=== PATIENT | female | born 1955 | race Caucasian/White ===

== ENCOUNTER 2021-06-28 18:15 | Inpatient (IN) | payer MEDICARE, MEDICAID, SELFPAY ==
--- NOTE | ~2021-06-28 | XR_ITS ---
EXAMINATION: RIGHT HAND/WRIST. CLINICAL INFORMATION: Punched wall. COMPARISON: None TECHNIQUE: 4 views right hand and wrist. FINDINGS: There is no visible acute fracture, dislocation or subluxation seen. There is mild reduction in the IV joint space second through fifth digits with periarticular spurring. Visualized inter carpal and the carpometacarpal joints are normal. There is no visible acute fracture, dislocation or subluxation seen. The soft tissues are normal. There is no scaphoid fracture visualized. XR/XR hand wrist RT IMPRESSION: No acute fracture or dislocation. Mild degenerative disc changes DIP joints second through fifth digit.
[2021-06-28 18:47] VITALS: BMI 32.1
[2021-06-28 18:50] VITALS: BP 157/78; PULSE 97; RESP 16; TEMP 36.3; O2SAT 96
[2021-06-28] MEDS: Gabapentin 600 MG TABLET PO (22:00)
[2021-06-28] MEDS: rOPINIRole HCL 2 MG TABLET 4 MG PO (22:34)
[2021-06-29] MEDS: traZODone HCL 50 MG TABLET PO ×2 (00:12→19:59)
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
[2021-06-29 06:00] VITALS: BP 136/75; PULSE 88; RESP 16; TEMP 35.5; O2SAT 98
[2021-06-29] MEDS: Gabapentin 600 MG TABLET PO ×3 (08:19→19:59)
[2021-06-29] MEDS: Acetaminophen 325 MG TABLET 650 MG PO ×2 (08:26→16:06)
[2021-06-29] MEDS: Omeprazole 20 MG CAPSULE.DR PO (11:17)
[2021-06-29] MEDS: Gabapentin 300 MG CAPSULE PO (11:17)
[2021-06-29] MEDS: diazePAM 5 MG TABLET PO ×2 (11:17→19:58)
[2021-06-29] MEDS: rOPINIRole HCL 1 MG TABLET PO ×2 (11:17→11:22)
--- NOTE | 2021-06-29 14:38 | PC.NURSE ---
pt states she smokes 5 cigarettes a day. does not want nicotine replacement.
[2021-06-29 16:31] VITALS: BP 124/59; PULSE 101; TEMP 36.6
[2021-06-29] MEDS: rOPINIRole HCL 2 MG TABLET 4 MG PO ×2 (17:00→19:59)
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
[2021-06-29] MEDS: FLUoxetine HCl 10 MG CAPSULE 30 MG PO (17:26)
[2021-06-29 17:34] LABS: MANUAL DIFF FLAG NO
[2021-06-29 17:37] LABS: Basophils Percent Auto 0.4 % (0-2); Hematocrit 40.6 % (37-47); Hemoglobin 13.4 g/dl (12.0-16.0); Imm Gran Abs Auto 0.03 X10*3/uL (0.00-0.03); Imm Gran Pct Auto 0.4 % (0.0-0.4); Lymphocytes Absolute Auto 3.2 X10*3/uL (1.2-4.9); Mean Corpuscular Hemoglobin 28.6 pg (27.0-33.0); Mean Corpuscular Volume 86.6 fL (80-98); Mean Platelet Volume 9.7 fL (9.4-12.3); Monocytes Absolute Auto 0.7 X10*3/uL (0.1-1.2); Monocytes Percent Auto 9.3 % (2-11); Neutrophils Absolute Auto 3.8 X10*3/uL (2.0-8.3); Neutrophils Percent Auto 48.9 % (45-73); Platelet Count 269 X10*3/uL (160-400); Red Blood Count 4.69 X10*6/uL (4.20-5.50); Red Cell Distribution Width 14.1 % (11.0-16.0); White Blood Count 7.7 X10*3/uL (4.8-10.8)
[2021-06-29 17:50] LABS: Anion Gap 12 (12-20); Blood Urea Nitrogen 27 mg/dL (9-16); Carbon Dioxide 33 mmol/L (22-29); Chloride 99 mmol/L (96-108); Creatinine Clr Calc Pharmacy 63.9; Estimated Glomerular Filt Rate 59; Potassium 4.4 mmol/L (3.3-5.1); Sodium 140 mmol/L (135-145)
[2021-06-29] MEDS: Melatonin 3 MG TABLET 9 MG PO (19:58)
--- NOTE | 2021-06-29 23:36 | PM.EVENT ---
Event Note Date of Service: 06/29/21 Event Note: attempted to see pt but pt was sleeping
[2021-06-30] MEDS: Omeprazole 20 MG CAPSULE.DR PO (05:39)
[2021-06-30] MEDS: diazePAM 5 MG TABLET PO ×2 (08:25→20:13)
[2021-06-30] MEDS: rOPINIRole HCL 1 MG TABLET PO (08:25)
[2021-06-30] MEDS: Gabapentin 600 MG TABLET PO ×3 (08:25→20:13)
[2021-06-30] MEDS: Acetaminophen 325 MG TABLET 650 MG PO (11:25)
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
[2021-06-30 18:00] VITALS: BP 110/68; PULSE 88; RESP 18; TEMP 36.7; O2SAT 100
[2021-06-30] MEDS: FLUoxetine HCl 10 MG CAPSULE 30 MG PO (20:13)
[2021-06-30] MEDS: Melatonin 3 MG TABLET 9 MG PO (20:13)
[2021-06-30] MEDS: rOPINIRole HCL 2 MG TABLET 4 MG PO (20:13)
[2021-06-30] MEDS: traZODone HCL 50 MG TABLET PO (20:13)
[2021-07-01] MEDS: Omeprazole 20 MG CAPSULE.DR PO (04:46)
[2021-07-01] MEDS: Acetaminophen 325 MG TABLET 650 MG PO ×2 (04:46→10:40)
[2021-07-01 06:00] VITALS: BP 124/70; PULSE 89; RESP 16; TEMP 36.5; O2SAT 93
[2021-07-01] MEDS: rOPINIRole HCL 1 MG TABLET PO (08:59)
[2021-07-01] MEDS: diazePAM 5 MG TABLET PO ×2 (08:59→20:44)
[2021-07-01] MEDS: Gabapentin 600 MG TABLET PO ×3 (08:59→20:42)
[2021-07-01] MEDS: Loperamide HCl 2 MG CAPSULE 4 MG PO (12:36)
[2021-07-01] MEDS: hydrOXYzine HCL 25 MG TABLET PO (17:19)
[2021-07-01 18:00] VITALS: BP 134/82; PULSE 85; RESP 16; TEMP 36.6
[2021-07-01] MEDS: FLUoxetine HCl 10 MG CAPSULE 30 MG PO (20:42)
[2021-07-01] MEDS: Melatonin 3 MG TABLET 9 MG PO (20:43)
[2021-07-01] MEDS: traZODone HCL 50 MG TABLET PO (20:44)
[2021-07-01] MEDS: rOPINIRole HCL 2 MG TABLET 4 MG PO (20:44)
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
[2021-07-02 06:00] VITALS: BP 130/82; PULSE 93; TEMP 36.9; O2SAT 93
[2021-07-02] MEDS: Omeprazole 20 MG CAPSULE.DR PO (06:32)
[2021-07-02] MEDS: Ibuprofen 400 MG TABLET PO ×2 (06:32→23:58)
[2021-07-02] MEDS: Gabapentin 600 MG TABLET PO ×3 (09:00→20:51)
[2021-07-02] MEDS: diazePAM 5 MG TABLET PO ×2 (09:00→20:52)
[2021-07-02] MEDS: rOPINIRole HCL 1 MG TABLET PO (09:00)
[2021-07-02] MEDS: Acetaminophen 325 MG TABLET 650 MG PO ×2 (09:00→20:53)
[2021-07-02] MEDS: Albuterol Sulfate 90 MCG 8 GM INHALER 2 PUFF INHALE (14:30)
[2021-07-02] MEDS: hydrOXYzine HCL 25 MG TABLET PO (14:31)
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
--- NOTE | 2021-07-02 16:28 | PC.NURSE ---
Pt had signed a 3-Day Notice on 06/29 up on Saturday.
[2021-07-02 18:00] VITALS: BP 172/81; PULSE 93; RESP 18; TEMP 36.3; O2SAT 97
[2021-07-02] MEDS: Melatonin 3 MG TABLET 9 MG PO (20:51)
[2021-07-02] MEDS: FLUoxetine HCl 10 MG CAPSULE 30 MG PO (20:51)
[2021-07-02] MEDS: traZODone HCL 50 MG TABLET PO (20:52)
[2021-07-02] MEDS: rOPINIRole HCL 2 MG TABLET 4 MG PO (20:52)
[2021-07-03 06:00] VITALS: BP 98/56; PULSE 80; RESP 16; TEMP 35.9; O2SAT 93
[2021-07-03] MEDS: Omeprazole 20 MG CAPSULE.DR PO (06:23)
[2021-07-03] MEDS: Ibuprofen 400 MG TABLET PO (06:36)
[2021-07-03] MEDS: diazePAM 5 MG TABLET PO (08:33)
[2021-07-03] MEDS: rOPINIRole HCL 1 MG TABLET PO (08:33)
[2021-07-03] MEDS: Gabapentin 600 MG TABLET PO (08:34)
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
[2021-07-03] MEDS: LORazepam 0.5 MG TABLET PO (09:45)
== END 2021-07-03 11:30 | disposition home or self-care (01) | DRG 885 ==
PROVIDERS: Admitting Provider Psychiatry & Neurology Psychiatry; PCP Internal Medicine; Visit Provider Psychiatry & Neurology Psychiatry
DX: F33.1 Major depressive disorder, recurrent, moderate (principal); R45.851 Suicidal ideations; F43.25 Adjustment disorder with mixed disturbance of emotions and conduct; F43.10 Post-traumatic stress disorder, unspecified; Z91.5 Personal history of self-harm; Z88.2 Allergy status to sulfonamides; Z88.5 Allergy status to narcotic agent; Z79.899 Other long term (current) drug therapy
CPT/HCPCS: 36415; 73110; 73130; 80051; 82565; 84520; 85025

== ENCOUNTER 2024-09-06 13:55 | Emergency (ER) | payer MEDICARE, MEDICAID, SELFPAY ==
--- NOTE | ~2024-09-06 | CT_ITS ---
EXAMINATION: CT ANGIOGRAM CHEST CLINICAL INFORMATION: Left pleuritic chest pain. Elevated d-dimer. COMPARISON: None available. TECHNIQUE: Multiple axial images were obtained through the chest after the administration of 65 mL of Omnipaque 350 intravenous contrast. Extensive vascular post-processing including two-dimensional and three-dimensional reformatted images were created and reviewed on an independent workstation. This CT examination was performed using dose optimization techniques as appropriate, variously including the following: *Automated exposure control *Adjustment of mA and/or kV according to patient size (this includes techniques or standardized protocols for targeted exams where dose is matched to indication/reason for exam; i.e. extremities or head) *Use of iterative reconstruction technique DLP: 297 mGy-cm FINDINGS: QUALITY OF STUDY/CONTRAST BOLUS: Satisfactory. PULMONARY ARTERIES: No pulmonary embolus identified. THORACIC AORTA: No aneurysm. LUNG: Severe, diffuse, coarse, bilateral interstitial prominence with a peripheral predominance. Associated honeycombing and/or traction bronchiectasis. Left lower lobe chain sutures. No consolidation or particularly suspicious nodule identified. Mild, diffuse bronchial wall thickening. Patent central bronchi. PLEURA: No pleural effusion or pneumothorax appreciated. MEDIASTINUM: Normal heart size. No pericardial effusion. 1.7 cm subcarinal lymph node (image 25, series 5). 1.2 cm pretracheal node (image 19). 1.6 cm right hilar node (image 23). No evidence of septal bowing or right heart strain. CORONARY ARTERY CALCIFICATION: Moderate. CHEST WALL/AXILLA: No axillary or internal mammary lymphadenopathy by size criteria. OSSEOUS STRUCTURES: No acute or suspicious osseous finding. Degenerative changes of the lower thoracic spine. Partially imaged lower cervical anterior fixation plate and screws, without evidence of hardware fracture. Mild osteoarthritis of the glenohumeral joints. Old, healed fracture of the left clavicle. UPPER ABDOMEN: Unremarkable. No reflux of contrast into the hepatic veins to suggest elevated right heart pressures. CT/CT angio chest PE protocol IMPRESSION: No evidence of pulmonary embolism. No acute finding. Severe, diffuse, coarse, bilateral interstitial prominence with a peripheral predominance. Associated honeycombing and/or traction bronchiectasis. Mild, diffuse bronchial wall thickening. Mild mediastinal and right hilar adenopathy. VTE: negative Electronically signed by: Rory Lopez MD 09/06/2024 05:10 PM EST
[2024-09-06 14:07] VITALS: BP 142/88; PULSE 66; O2SAT 98
[2024-09-06 14:18] VITALS: BP 135/76; PULSE 80; RESP 18; TEMP 36.4; O2SAT 96; BMI 30.9
[2024-09-06 14:55] LABS: MANUAL DIFF FLAG NO
[2024-09-06 14:56] LABS: Basophils Percent Auto 0.6 % (0-2); Eosinophils Percent Auto 0.2 % (0-4); Hematocrit 33.2 % (37.0-47.0); Hemoglobin 10.9 g/dl (12.0-16.0); Imm Gran Abs Auto 0.01 X10*3/uL (0.00-0.03); Imm Gran Pct Auto 0.2 % (0.0-0.4); Lymphocytes Absolute Auto 2.6 X10*3/uL (1.2-4.9); Lymphocytes Percent Auto 50.5 % (20-40); Mean Corpuscular HGB Conc 32.8 g/dl (31.0-35.0); Mean Corpuscular Hemoglobin 27.9 pg (27.0-33.0); Mean Corpuscular Volume 85.1 fL (80.0-98.0); Mean Platelet Volume 9.7 fL (9.4-12.3); Monocytes Absolute Auto 0.6 X10*3/uL (0.1-1.2); Monocytes Percent Auto 11.7 % (2-11); Neutrophils Absolute Auto 1.9 x10*3/uL (2.0-8.3); Neutrophils Percent Auto 36.8 % (45-73); Platelet Count 206 X10*3/uL (160-400); Red Cell Distribution Width 13.2 % (11.0-16.0); White Blood Count 5.2 X10*3/uL (4.8-10.8)
--- NOTE | 2024-09-06 14:56 | ED.BACK ---
HPI - Back Pain/Injury General Chief Complaint: Dyspnea Stated Complaint: BACK PAIN FROM [facility] PER EMS Time Seen by Provider: 09/06/24 14:20 Source: patient, EMS and old records reviewed Mode of arrival: ambulatory Limitations: no limitations History of Present Illness ED Provider: ROMINA OBANDO Narrative: 68 yo female with remote history of lung cancer s/p surgery, PTSD, COPD, GERD who has been at [facility] for about a week she notes 2 days of WILIAN pain that is pleuritic and she cannot take a deep breath. She denies thinners or prior blood clots. She denies cough or fevers. She has no sputum. She states tylenol is not working. Pain is posterior upper back upper lung pain MD elicited complaint: other (pleuritic upper back pain) Pertinent past history: other Onset (ago): day(s) (2) Timing: constant Severity: severe Similar Symptoms Previously: No Quality: sharp Radiation: none Exacerbating factors: deep breaths Relieving factors: none Context: other Associated symptoms: other (dyspnea) Work related injury: No Related Data Previous Rx's ?Medication ?Instructions ?Recorded albuterol sulfate 90 mcg/actuation 2 puff inhalation Q4H PRN sob #0 07/03/21 aerosol inhaler (Ventolin HFA) grams diazepam 5 mg tablet 5 mg PO BID #0 tabs 07/03/21 fluoxetine 10 mg capsule 30 mg (3 x 10 mg) PO BEDTIME 30 07/03/21 days #0 caps gabapentin 600 mg tablet 600 mg PO TID #0 tabs 07/03/21 melatonin 3 mg tablet 9 mg (3 x 3 mg) PO BEDTIME #0 tabs 07/03/21 omeprazole 20 mg capsule,delayed 20 mg PO DAILY@0630 #0 caps 07/03/21 release ropinirole 1 mg tablet 1 mg PO DAILY #0 tabs 07/03/21 ropinirole 2 mg tablet 4 mg (2 x 2 mg) PO BEDTIME #0 tabs 07/03/21 trazodone 50 mg tablet 50 mg PO BEDTIME 30 days #30 tabs 07/03/21 Allergies Allergy/AdvReac Type Severity Reaction Status Date / Time codeine Allergy Unknown Verified 06/28/21 18:48 guaifenesin [From Robitussin] Allergy Unknown Unverified 09/06/24 14:22 meperidine [From Demerol] Allergy Unknown Verified 06/28/21 18:48 prednisone Allergy Unknown Unverified 09/06/24 14:22 propofol Allergy Unknown Unverified 09/06/24 14:22 Sulfa (Sulfonamide Allergy Unknown Verified 06/28/21 18:48 Antibiotics) varenicline [From Chantix] Allergy Unknown Verified 06/28/21 18:48 Review of Systems Review of Systems: Constitutional : No Weight loss, No Fever, No Chills, ENT/Mouth : No Hearing loss, No Ear Pain, No Nasal Congestion, No Sinus Pain, No Hoarseness, No sore throat, No Rhinorrhea, No Swallowing Difficulty Cardiovascular : No Chest Pain, No SOB Respiratory : No Cough, pos Dyspnea Gastrointestinal : No Nausea, No Vomiting, No Diarrhea, No abdominal Pain, No Hematochezia, No Melena Genitourinary : No Dysuria, No Urinary Frequency, No Hematuria, No Urinary Incontinence, Musculoskeletal : positive back pain Skin : No Skin Lesions, No rash Neuro : No Weakness, No Numbness, No Paresthesias, no loss of bowel or bladder incontinence, no saddle anesthesia all other systems reviewed and are negative [facility] Past Medical History Attestation statement: The following information was validated with the patient. Source: old records reviewed Medical History MDD (major depressive disorder), recurrent episode, moderate Post traumatic stress disorder (PTSD) Social History Social History Household Members: Spouse Housing: House Unable to assess alcohol history related to: Refusing to respond Patient Tobacco Use Status: Refuse Tobacco use screen Smoked in Last 30 Days: No Use of substances other than those prescribed or required for medical reasons: No Advance Directives: No Advance Directives Information Provided: Yes Do you have a plan to hurt others: No Plan service: No Sexual orientation: Straight/Heterosexual Physical Exam Vital Signs: Vital Signs: Last Vital Signs Temp 97.5 F 09/06/24 14:18 Pulse 80 09/06/24 14:18 Resp 18 09/06/24 14:18 BP 135/76 09/06/24 14:18 Pulse Ox 96 09/06/24 14:18 O2 Del Method Room Air 09/06/24 14:18 BMI result Body Mass Index 30.9 Appearance: Alert. Oriented X3. No acute distress. Eyes: Pupils equal, round and reactive to light. ENT: Pharynx normal. Neck: Normal inspection. Neck supple. CVS: Normal heart rate and rhythm. Pulses normal. Respiratory: No respiratory distress. Breath sounds splinting L side lung sounds noted. Abdomen: Soft and nontender. Skin: Skin warm and dry. Normal skin color. Normal skin turgor. Extremities: No lower extremity edema. No calf ttp Neuro: Oriented X 3. No motor deficit. No sensory deficit. Course Course Course Narrative: age adjusted ddimer 330 - CTA PE ordered Medications Administered Discontinued Medications Generic Name Dose Route Start Last Admin Trade Name Freq PRN Reason Stop Dose Admin Tramadol HCl 50 mg 09/06/24 14:39 09/06/24 15:05 Tramadol Hcl 50 Mg Tablet PO 09/06/24 14:40 50 mg ONCE ONE Administration Medical Decision Making Medical Decision Making [facility] Narrative: 68 yo female with remote history of lung cancer s/p surgery, PTSD, COPD, GERD now with pleuritic L upper posterior back pain at this time needs CXR for PTX/mass/infection and ddimer given the pain. If positive CTA ordered. PO tramadol ordered for pain, pain x 2 days one troponin ordered. Doubt ACS, no rash noted Differential Diagnosis Differential Diagnoses: The differential diagnosis associated with the presentation includes mass/PTX/infection/VTE Admission/Observation Consideration of admission/observation: Escalation of care including admission/observation considered Lab Data [facility] Lab Attestation statement: I reviewed the patient's lab results. 09/06/24 14:50 09/06/24 14:50 Labs: Lab Results 09/06/24 Range/Units 14:50 WBC 5.2 (4.8-10.8) X10*3/uL RBC 3.90 L (4.20-5.50) X10*6/uL Hgb 10.9 L (12.0-16.0) g/dl Hct 33.2 L (37.0-47.0) % MCV 85.1 (80.0-98.0) fL MCH 27.9 (27.0-33.0) pg MCHC 32.8 (31.0-35.0) g/dl RDW 13.2 (11.0-16.0) % Plt Count 206 (160-400) X10*3/uL MPV 9.7 (9.4-12.3) fL Immature Gran % (Auto) 0.2 (0.0-0.4) % Neut % (Auto) 36.8 L (45-73) % Lymph % (Auto) 50.5 H (20-40) % [place] % (Auto) 11.7 H (2-11) % Eos % (Auto) 0.2 (0-4) % Baso % (Auto) 0.6 (0-2) % Lymph # (Auto) 2.6 (1.2-4.9) X10*3/uL [place] # (Auto) 0.6 (0.1-1.2) X10*3/uL Eos # (Auto) 0.0 (0.0-0.4) X10*3/uL Baso # (Auto) 0.0 (0.0-0.2) X10*3/uL Abs Immat Gran (auto) 0.01 (0.00-0.03) X10*3/uL Absolute Neuts (auto) 1.9 L (2.0-8.3) x10*3/uL Absolute Nucleated RBC 0.000 (0.0-0.012) X10*3/uL Nucleated RBC % (auto) 0.0 (0.0-0.2) /100WBC D-Dimer High Sensitivty 411 NG/ML Sodium 143 (135-145) mmol/L Potassium 3.6 (3.3-5.1) mmol/L Chloride 109 H (96-108) mmol/L Carbon Dioxide 27 (22-29) mmol/L Anion Gap 11 L (12-20) BUN 15 (9-16) mg/dL Creatinine 0.81 (0.5-1.4) mg/dL Estim Creat Clear Calc 70.6 Estimated GFR > 60 Random Glucose 96 (60-115) mg/dL Calcium 8.8 (8.4-10.2) mg/dL Magnesium 1.2 L* (1.6-2.6) mg/dL Total Bilirubin 0.2 (0.0-1.0) mg/dL Direct Bilirubin < 0.2 (0.0-0.5) mg/dL AST 16 (5-31) U/L ALT 16 (0-31) U/L Alkaline Phosphatase 80 (39-117) U/L Troponin I High Sens < 2.7 (<3.5-17.0) ng/L Total Protein 6.8 (6.5-8.0) g/dL Albumin 4.0 (3.5-5.0) g/dL Independent Interpretation I performed an independent interpretation of an: EKG, Plain X-Ray and CT Scan Interpretation: Rate: 93 Rhythm:NSR [place]: normal Normal P waves. Normal JESSICA. Normal QRS complex. ST T wave : inverted t waves V1 and V2, no RUTHY qTC: 482 prior studies: no sig ischemia The study has been interpreted contemporaneously by me. . Radiology Impression Discussion of test interpretation with radiology: I have reviewed the radiologist's reading. External Record Review External record reviewed: Outpatient record Discharge Plan Discharge Clinical Impression: Hypomagnesemia, Pleuritic pain Patient Disposition: Still a Patient Prescriptions: No Action gabapentin 600 mg Tablet 600 mg PO TID Qty: 0 0RF fluoxetine 10 mg Capsule 30 mg PO BEDTIME 30 Days Qty: 0 0RF albuterol sulfate [Ventolin HFA] 90 mcg/actuation Hfa Aerosol Inhaler 2 puff inhalation Q4H PRN (Reason: sob) Qty: 0 0RF diazepam 5 mg Tablet 5 mg PO BID Qty: 0 0RF ropinirole 1 mg Tablet 1 mg PO DAILY Qty: 0 0RF ropinirole 2 mg Tablet 4 mg PO BEDTIME Qty: 0 0RF melatonin 3 mg Tablet 9 mg PO BEDTIME Qty: 0 0RF omeprazole 20 mg Capsule,Delayed Release(Dr/Ec) 20 mg PO DAILY@0630 Qty: 0 0RF trazodone 50 mg Tablet 50 mg PO BEDTIME 30 Days Qty: 30 0RF Print Language: Greenlandic
[2024-09-06 15:04] LABS: D Dimer High Sensitivity 411 NG/ML
[2024-09-06] MEDS: traMADoL HCL 50 MG TABLET PO (15:05)
[2024-09-06 15:18] LABS: Alanine Aminotransferase 16 U/L (0-31); Alkaline Phosphatase 80 U/L (39-117); Anion Gap 11 (12-20); Aspartate Amino Transferase 16 U/L (5-31); Bilirubin Direct < 0.2 mg/dL (0.0-0.5); Bilirubin Total 0.2 mg/dL (0.0-1.0); Blood Urea Nitrogen 15 mg/dL (9-16); Calcium 8.8 mg/dL (8.4-10.2); Carbon Dioxide 27 mmol/L (22-29); Chloride 109 mmol/L (96-108); Creatinine Clr Calc Pharmacy 70.6; Estimated Glomerular Filt Rate > 60; Glucose Random 96 mg/dL (60-115); Magnesium 1.2 mg/dL (1.6-2.6); Potassium 3.6 mmol/L (3.3-5.1); Sodium 143 mmol/L (135-145); Total Protein 6.8 g/dL (6.5-8.0)
[2024-09-06 15:22] LABS: Troponin-I High Sensitivity < 2.7 ng/L (<3.5-17.0)
--- NOTE | 2024-09-06 15:52 | PC.NURSE ---
pt is alert and oriented, skin pwd, respirations even and unlabored, pt coming from [facility] for depression, pt is reporting left mid/upper lobe lung pain and junky cough but according to the pt this cough is chronic for the pt, ls clear, ns on the monitor pt changed over into green attire and belongings secured in the closet, sitter in place
[2024-09-06 16:00] VITALS: BP 141/76; PULSE 78; RESP 18; TEMP 36.5; O2SAT 95
[2024-09-06] MEDS: iohexoL 350 MG/ML 100 ML INFUS..BTL IV (16:25)
[2024-09-06] MEDS: Magnesium Sulfate/H2O 2 GM/50 ML PIGGYBACK IV (16:27)
[2024-09-06] MEDS: LORazepam 0.5 MG TABLET PO (17:35)
[2024-09-06 17:57] VITALS: BP 151/81; PULSE 78; RESP 16; O2SAT 95
--- NOTE | 2024-09-06 18:02 | PC.NURSE ---
report given to ángela ospina [facility]
[2024-09-06 19:32] VITALS: BP 151/81; PULSE 78; RESP 16; TEMP 36.8; O2SAT 95
== END 2024-09-06 19:33 | disposition home or self-care (01) ==
PROVIDERS: Emergency Medicine; Emergency Provider Emergency Medicine Emergency Medical Services
DX: E83.42 Hypomagnesemia (principal); R07.81 Pleurodynia; R06.00 Dyspnea, unspecified; J44.9 Chronic obstructive pulmonary disease, unspecified; M54.50 Low back pain, unspecified; Z79.899 Other long term (current) drug therapy
CPT/HCPCS: 36415; 71045; 71275; 80048; 80076; 83735; 84484; 85025; 85379; 96365; 96366; 99285; J3475; Q9967